=== PATIENT | female | born 1985 | race Caucasian/White ===

== ENCOUNTER 2024-04-05 18:25 | Emergency (ER) | payer BC, SELFPAY ==
[2024-04-05 18:28] VITALS: BP 125/80
[2024-04-05 18:37] VITALS: BMI 25.9
[2024-04-05] MEDS: MOTRIN 600 MG PO (19:17)
--- NOTE | 2024-04-05 20:19 | ED.SKININJ ---
HPI-Injury
General
Chief Complaint: Skin Problem
Source: patient
Exam Limitations: none
Time Seen by Provider: 04/05/24 18:48
Nursing documentation reviewed up to this point in time: agreed with
History of Present Illness-Injury
Is this injury a work related problem?: No
Is pt an associate of [facility]/[place]?: No
Initial Injury comments:
Patient states she was stung by unknown insect that was on her bag. Complains of ppain to right palmar hand. Incident occurred just [employer]
Past History
Past History
ED Past Medical History: Hypercholesterolemia, Valvular disease (Mitral valve prolapse) and Psychiatric (Depression, anxiety)
ED Past Surgical History: None
Social History
Tobacco: Non-smoker
Alcohol: Occasional
Drug: None
Personal:
Living: with family
Employment: Employed
Review of Systems
Review of Systems
Allergies reviewed?: Yes
All Other Systems: ROS reviewed and negative except as documented in HPI and ROS
Constitutional: Reports no symptoms
EENT: Reports no symptoms
Respiratory: Reports no symptoms
Musculoskeletal: Reports no symptoms
Skin: Reports other (insect sting to rigth palmar hand)
Neurological: Reports no symptoms
Psychiatric: Reports no symptoms
Phy Exam
General Physical Exam
General Presentation: well appearing and no apparent distress
General age: appears stated age
General Skin: warm and dry
General Habitus: normal
General Mental: alert
General Hydration: appears well hydrated
Musculoskeletal Exam
Musculoskeletal Exam: full ROM and neuro vasc intact
Skin Exam
Skin Exam: other (insect sting to right palmar hand)
Psychiatric Exam
Psychiatric Exam: normal mood/affect
Course
Orders/Labs/Results
Orders:
Orders
04/05/24 18:54
Lidocaine/Epinephrine/Tetracai [Let Topical Anesthetic Gel] 3 ml .ROUTE .STK-MED ONE
04/05/24 19:14
Ibuprofen [Motrin] 600 mg .ROUTE .STK-MED ONE
04/05/24 19:17
Ibuprofen [Motrin] 600 mg PO NOW STA
Vital Signs
Initial and Last Documented VS:
Initial Vital Signs
Temp Pulse Resp BP Pulse Ox
98.8 F 87 20 125/80 97
04/05/24 18:28 04/05/24 18:28 04/05/24 18:28 04/05/24 18:28 04/05/24 18:28
Last Documented Vital Signs
Temp Pulse Resp BP Pulse Ox
98.8 F 87 20 125/80 97
04/05/24 18:28 04/05/24 18:28 04/05/24 18:28 04/05/24 18:28 04/05/24 18:28
*Critical Care Note
Total Time (30-74mins, 75-104mins- exclusive of procedures): Not Applicable
ED Attending Note
-
Portions of this chart may have been created with voice recognition software.� Occasional wrong word or��sound alike� substitutions may have occurred due to the inherent limitations of voice recognition software.
Discharge Plan
Departure
Patient Disposition: Home (Routine Discharge)
Date of Disposition: 04/05/24
Time of Disposition: 19:02
Patient with high blood pressure during this ER visit?: No
Condition: Good
Discharge Problem:
Insect bite
Instructions: Using Cold for Pain, Insect Bites and Stings ED
Prescriptions:
New
methylprednisolone [Medrol (Armando)] 4 mg tablets,dose pack
See Rx Instructions .ROUTE .COMPLEX Qty: 21 0RF
Rx Instructions:
for 6 days
No Action
ferrous sulfate [FeroSul] 325 MG tablet
325 mg PO BID Qty: 60 0RF
ibuprofen 600 MG tablet
600 mg PO Q6HPRN PRN (Reason: MODERATE PAIN/CRAMPS) Qty: 60 1RF
Colace 100 Mg
1 tab PO DAILY PRN (Reason: constipation) Qty: 30 1RF
vit-iron carbonyl-FA 1 TAB tablet
1 tab PO DAILY
diclofenac sodium 25 MG tablet,delayed release (DR/EC)
50 mg PO BID PRN (Reason: pain) Qty: 30 0RF
cyclobenzaprine 10 MG tablet
10 mg PO TIDPRN PRN (Reason: spasm) Qty: 12 0RF
Activity Restrictions/Additional Instructions:
May use benadryl 25mg every 4-6 hours for itching. Return to the emergency department immediately for any difficulty breathing or swallowing.
Interventions
Interventions:
*Risk Screen - Suicide Last Done: 04/05/24 18:37
*General Assessment Last Done: 04/05/24 18:37
*Neglect/Abuse Screening Last Done: 04/05/24 18:37
ED- Fall Risk Assessment Last Done: 04/05/24 18:37
*ED COVID-19 Vaccine History Last Done: 04/05/24 18:37
*Nursing Disposition Last Done: 04/05/24 20:08
ED-Skin Assessment Last Done: 04/05/24 18:37
Discharge Date and Time
Discharge Date/Time: 04/05/24 20:00
Print Language: CZECH
== END 2024-04-05 20:00 | disposition home or self-care (01) ==
LOC: EMR 18:25
PROVIDERS: EMERGENCY PHYSICIAN Emergency Medicine; FAMILY PHYSICIAN Family Medicine
DX: S60.561A Insect bite (nonvenomous) of right hand, initial encounter (principal); W57.XXXA Bitten or stung by nonvenomous insect and other nonvenomous arthropods, initial encounter; E78.00 Pure hypercholesterolemia, unspecified; I38 Endocarditis, valve unspecified; I34.1 Nonrheumatic mitral (valve) prolapse; F41.8 Other specified anxiety disorders
CPT/HCPCS: 99282

== ENCOUNTER → 2024-11-04 11:41 | Outpatient (REF) | payer BC, SELFPAY | LOC: PNTC 11:41 | PROVIDERS: ATTENDING PHYSICIAN Obstetrics & Gynecology | DX: O09.523 Supervision of elderly multigravida, third trimester (principal) | CPT/HCPCS: 36415; 86850; 86900; 86901; 96372; J2790 ==

== ENCOUNTER → 2024-11-07 11:04 | Outpatient (REF) | payer BC, SELFPAY ==
--- NOTE | 2024-11-07 11:12 | PN.DIAED06 ---
Meal Plan - Gestational
- Breakfast
Gestational Diabetes Meal Plan Name: 1800 calories
Breakfast - Total Carbohydrate (grams): 30
Breakfast - Starch Carbohydrate: 1
Breakfast - Fruit Carbohydrate: 0
Breakfast - Milk Carbohydrate: 1
Breakfast - Nonstarchy Vegetables: Yes
Breakfast - Meat/Protein: 1
Breakfast - Fat: 2
- Morning Snack
Morning Snack - Total Carbohydrate (grams): 30
Morning Snack - Starch Carbohydrate: 1
Morning Snack - Fruit Carbohydrate: 0
Morning Snack - Milk Carbohydrate: 1
Morning Snack - Nonstarchy Vegetables: Yes
Morning Snack - Meat/Protein: 0.5
Morning Snack - Fat: 0
- Lunch
Lunch - Total Carbohydrate (grams): 45
Lunch - Starch Carbohydrate: 2
Lunch - Fruit Carbohydrate: 1
Lunch - Milk Carbohydrate: 0
Lunch - Nonstarchy Vegetables: Yes
Lunch - Meat/Protein: 2
Lunch - Fat: 1
- Afternoon Snack
Afternoon Snack - Total Carbohydrate (grams): 30
Afternoon Snack - Starch Carbohydrate: 1
Afternoon Snack - Fruit Carbohydrate: 1
Afternoon Snack - Milk Carbohydrate: 0
Afternoon Snack - Nonstarchy Vegetables: Yes
Afternoon Snack - Meat/Protein: 1
Afternoon Snack - Fat: 0
- Dinner
Dinner - Total Carbohydrate (grams): 45
Dinner - Starch Carbohydrate: 2
Dinner - Fruit Carbohydrate: 0
Dinner - Milk Carbohydrate: 1
Dinner - Nonstarchy Vegetables: Yes
Dinner - Meat/Protein: 2
Dinner - Fat: 2
- Evening Snack
Evening Snack - Total Carbohydrate (grams): 30
Evening Snack - Starch Carbohydrate: 1
Evening Snack - Fruit Carbohydrate: 0
Evening Snack - Milk Carbohydrate: 1
Evening Snack - Nonstarchy Vegetables: Yes
Evening Snack - Meat/Protein: 1
Evening Snack - Fat: 1
--- NOTE | 2024-11-07 12:36 | PN.DE ---
Diabetes Education
- -
Jasmin presented with her mother in law for medical nutrition therapy. She is currently 31 weeks gestation with her 2nd child. She denied having gestational diabetes with her first child 8 years ago. Andrea' mother had type 2 diabetes,
diagnosed at 30 years of age.
I explained glucose metabolism and what occurs during to cause an increase in blood sugar. I discussed the importance of keeping the blood sugar well controlled to avoid complications to the baby during and after . I also explained
that she is at an increased risk of developing T2DM in the future. Jasmin had checked her blood sugar in the past while caring for her mother. I reviewed the set up and use of the hulur Next EZ glucometer. She was able to return demonstrate a
fingerstick and her glucose level was 99 mg/dL (appx 1.5 hours post breakfast). I reviewed target glucose ranges for fasting and 2 hour post meal. I also provided written material highlighting the fasting target of <95 mg/dL and <120 mg /dl 2 hours
post prandial. Jasmin was given a glucose log and she verbalized understanding of sending her readings weekly to [facility].
I reviewed macronutrients with Jasmin and provided her with a 1800 calorie gestational meal plan. I reviewed the meal plan in detail and gave her specific samples of appropriate meal/snack options. She stated she will keep a food log and will
evaluate her meal options by monitoring her 2 hour post meal blood sugar level.
Currently Jasmin is not doing any physical activity. I discussed the benefit of exercise in decreasing blood glucose levels. She stated she would add in 30 to 60 minutes of walking daily. I encouraged Jasmin to reach out to the office with any
questions or if she is prescribed insulin.
== END ==
LOC: DES 11:04
PROVIDERS: ATTENDING PHYSICIAN Student in an Organized Health Care Education/Training Program
DX: O24.419 Gestational diabetes mellitus in pregnancy, unspecified control (principal)
CPT/HCPCS: 99078

== ENCOUNTER → 2024-11-20 11:28 | Outpatient (REF) | payer BC, SELFPAY | LOC: PNTC 11:28 | PROVIDERS: ATTENDING PHYSICIAN Obstetrics & Gynecology | DX: O24.419 Gestational diabetes mellitus in pregnancy, unspecified control (principal) | CPT/HCPCS: 59025; 76815 ==

== ENCOUNTER 2024-11-22 18:45 | Emergency (ER) | payer BC, SELFPAY ==
[2024-11-22 18:51] VITALS: BP 118/67
--- NOTE | 2024-11-22 21:18 | ED.GENMED ---
History of Present Illness
General
Chief Complaint: Back Pain
Source: patient
Exam Limitations: none
Time Seen by Provider: 11/22/24 21:08
History of Present Illness
History of Present Illness:
39yo female currently 32 weeks presenting with her for evaluation of lower back pain. Symptoms have been constant for the past 4 days. She denies any trauma or inciting incident. Pain is located in her left lower back and
radiates to the left buttock region. She feels her symptoms are from sciatica. Pain is worse with movement and ambulation. She has tried stretching, heat, and Tylenol without any relief. She states she is at her wits end and was not sure what to
do so came to the ED. Patient is otherwise asymptomatic and denies any abdominal pain, difficulty urinating, vaginal bleeding, leakage of fluid, paresthesias, fevers. movement has been normal. She had a nonstress test 2 days ago as well as
an ultrasound earlier in the week which were both normal. Her only complication this is gestational diabetes which is diet-controlled. She follows with [facility].
Past History
Past History
ED Past Medical History: Hypercholesterolemia, Valvular disease (Mitral valve prolapse) and Psychiatric (Depression, anxiety)
ED Past Surgical History: None
Social History
Tobacco: Non-smoker
Alcohol: Occasional
Drug: None
Personal:
Living: with family
Employment: Employed
Phy Exam
General Physical Exam
General Presentation: well appearing and no apparent distress
General age: appears stated age
General Skin: warm and dry
General Habitus: normal
General Mental: alert
ENT Exam
ENT Exam: normocephalic
Pulmonary Exam
Pulmonary Exam: no respiratory distress
Gastrointestinal Exam
Gastrointestinal Exam: soft, non distended and other (Gravid abdomen. No abdominal tenderness. FHR 150.)
Neurological Exam
Neurological Exam: alert
Danna Coma Scale
Eye Opening: Spontaneous
Verbal Response: Oriented
Motor Response: Obeys Commands
GCS Total Score: 15
Musculoskeletal Exam
Musculoskeletal Exam: other (No tenderness to palpation of the lumbar region. Pain is elicited with trunk movement. No skin changes.)
Skin Exam
Skin Exam: normal color and warm/dry
Psychiatric Exam
Psychiatric Exam: normal mood/affect
Course
Orders/Labs/Results
Orders:
Orders
11/22/24 21:30
Heart Tones ONCE
Vital Signs
Initial and Last Documented VS:
Initial Vital Signs
Temp Pulse Resp BP Pulse Ox
98.2 F 84 16 118/67 99
11/22/24 18:51 11/22/24 18:51 11/22/24 18:51 11/22/24 18:51 11/22/24 18:51
Last Documented Vital Signs
Temp Pulse Resp BP Pulse Ox
98.2 F 84 16 118/67 99
11/22/24 18:51 11/22/24 18:51 11/22/24 18:51 11/22/24 18:51 11/22/24 18:51
MDM/Problems Addressed
Differential Diagnosis Includes:
39yoF here with L lower back/buttock pain x 4 days. No trauma. Currently 32 weeks . No abdominal pain, LOF, vaginal bleeding, contractions, or other concerns. VSS. Patient is well-appearing in no acute distress. No abdominal
tenderness appreciated. There is pain elicited in the low back with trauma movement. No tenderness to palpation. Differential diagnosis includes but is not limited to: Sciatica, lumbar strain, no clinical evidence of labor
Discussed case with LO[facility] TALLIER on-call, Dr. Felix, who recommends rest, hydration, and PT as an outpatient. Patient may also try a maternity belt. Recommendations discussed with patient. She was advised to follow-up closely with her [facility] team.
ED return precautions discussed. Patient discharged in stable condition.
*Critical Care Note
Total Time (30-74mins, 75-104mins- exclusive of procedures): Not Applicable
ED Attending Note
-
Portions of this chart may have been created with voice recognition software.� Occasional wrong word or��sound alike� substitutions may have occurred due to the inherent limitations of voice recognition software.
Discharge Plan
Departure
Patient Disposition: Home (Routine Discharge)
Date of Disposition: 11/22/24
Time of Disposition: 21:58
Patient with high blood pressure during this ER visit?: No
Discharge Problem:
Left sided sciatica
Instructions: Sciatica (DC)
Prescriptions:
No Action
ferrous sulfate [FeroSul] 325 MG tablet
325 mg PO BID Qty: 60 0RF
ibuprofen 600 MG tablet
600 mg PO Q6HPRN PRN (Reason: MODERATE PAIN/CRAMPS) Qty: 60 1RF
Colace 100 Mg
1 tab PO DAILY PRN (Reason: constipation) Qty: 30 1RF
vit-iron carbonyl-FA 1 TAB tablet
1 tab PO DAILY
diclofenac sodium 25 MG tablet,delayed release (DR/EC)
50 mg PO BID PRN (Reason: pain) Qty: 30 0RF
cyclobenzaprine 10 MG tablet
10 mg PO TIDPRN PRN (Reason: spasm) Qty: 12 0RF
methylprednisolone [Medrol (Armando)] 4 mg tablets,dose pack
See Rx Instructions .ROUTE .COMPLEX Qty: 21 0RF
Rx Instructions:
for 6 days
Referrals:
Dainel Olivier MD [Family Provider] -
Activity Restrictions/Additional Instructions:
Rest, hydrate, and apply heat. Continue taking Tylenol as needed. Maternity belt may help with pressure from uterus.
Please follow-up with your OBGYN on Sunday for further care. You may need outpatient physical therapy if symptoms do not improve.
Interventions
Interventions:
*Risk Screen - Suicide Last Done: 11/22/24 22:20
*General Assessment Last Done: 11/22/24 18:51
*Neglect/Abuse Screening Last Done: 11/22/24 18:51
*ED- Fall Risk Assessment Last Done: 11/22/24 22:20
*ED COVID-19 Vaccine History Last Done: 11/22/24 18:51
*Nursing Disposition Last Done: 11/22/24 22:20
ED-Musculoskeletal Assessment Last Done: 11/22/24 21:00
Discharge Date and Time
Discharge Date/Time: 11/22/24 22:22
Print Language: GEORGIAN
== END 2024-11-22 22:22 | disposition home or self-care (01) ==
LOC: EMR 18:45
PROVIDERS: EMERGENCY PHYSICIAN Emergency Medicine; FAMILY PHYSICIAN Family Medicine
DX: O99.891 Other specified diseases and conditions complicating pregnancy (principal); M54.42 Lumbago with sciatica, left side; O09.523 Supervision of elderly multigravida, third trimester; O99.283 Endocrine, nutritional and metabolic diseases complicating pregnancy, third trimester; E78.00 Pure hypercholesterolemia, unspecified; Z3A.32 32 weeks gestation of pregnancy
CPT/HCPCS: 99282

== ENCOUNTER → 2024-11-27 16:58 | Outpatient (REF) | payer BC, SELFPAY | LOC: PNTC 16:58 | PROVIDERS: ATTENDING PHYSICIAN Student in an Organized Health Care Education/Training Program | DX: O24.419 Gestational diabetes mellitus in pregnancy, unspecified control (principal) | CPT/HCPCS: 59025 ==

== ENCOUNTER → 2024-12-04 08:52 | Outpatient (REF) | payer BC, SELFPAY | LOC: PNTC 08:52 | PROVIDERS: ATTENDING PHYSICIAN Student in an Organized Health Care Education/Training Program | DX: O24.419 Gestational diabetes mellitus in pregnancy, unspecified control (principal) | CPT/HCPCS: 59025; 76815 ==

== ENCOUNTER → 2024-12-11 17:03 | Outpatient (REF) | payer BC, SELFPAY | LOC: PNTC 17:03 | PROVIDERS: ATTENDING PHYSICIAN Student in an Organized Health Care Education/Training Program | DX: O24.419 Gestational diabetes mellitus in pregnancy, unspecified control (principal); O09.529 Supervision of elderly multigravida, unspecified trimester | CPT/HCPCS: 76818 ==

== ENCOUNTER 2024-12-13 16:55 | Observation (INO) | payer BC, SELFPAY ==
[2024-12-13 17:00] VITALS: BP 110/70; BMI 33.2
== END 2024-12-13 18:08 | disposition home or self-care (01) ==
LOC: LDRP 16:55
PROVIDERS: ADMITTING PHYSICIAN Student in an Organized Health Care Education/Training Program
DX: O47.03 False labor before 37 completed weeks of gestation, third trimester (principal); O24.410 Gestational diabetes mellitus in pregnancy, diet controlled; Z3A.35 35 weeks gestation of pregnancy; O09.523 Supervision of elderly multigravida, third trimester; O99.343 Other mental disorders complicating pregnancy, third trimester; F41.9 Anxiety disorder, unspecified; Z79.82 Long term (current) use of aspirin
CPT/HCPCS: 59899; G0378

== ENCOUNTER → 2024-12-18 16:44 | Outpatient (REF) | payer BC, SELFPAY | LOC: PNTC 16:44 | PROVIDERS: ATTENDING PHYSICIAN Student in an Organized Health Care Education/Training Program | DX: O24.410 Gestational diabetes mellitus in pregnancy, diet controlled (principal); O09.513 Supervision of elderly primigravida, third trimester; O99.213 Obesity complicating pregnancy, third trimester | CPT/HCPCS: 59025 ==

== ENCOUNTER → 2024-12-25 11:24 | Outpatient (REF) | payer BC, SELFPAY | LOC: PNTC 11:24 | PROVIDERS: ATTENDING PHYSICIAN Obstetrics & Gynecology | DX: O24.410 Gestational diabetes mellitus in pregnancy, diet controlled (principal); O09.523 Supervision of elderly multigravida, third trimester; O99.213 Obesity complicating pregnancy, third trimester | CPT/HCPCS: 59025; 76815 ==

== ENCOUNTER 2024-12-30 05:56 | Inpatient (IN) | payer BC, SELFPAY ==
[2024-12-30 06:14] LABS: Glucose - Point of Care 90 mg/dl (70-99)
[2024-12-30 06:18] VITALS: BP 115/81; BMI 34.0
[2024-12-30 06:51] LABS: % Basophils 0.5 % (0-2); % Eosinophils 0.8 % (0-6); % Immature Granulocytes 0.5 % (0-0.5); % Lymphocytes 25.4 % (20.5-51.1); % Monocytes 7.4 % (1.7-9.3); % Neutrophils 65.4 % (42.2-75.2); Absolute Eosinophils 0.1 10^3/uL (0-0.7); Absolute Monocytes 0.6 10^3/uL (0.1-0.6); Absolute Neutrophils 5.1 10^3/uL (1.4-6.5); Hematocrit 37.6 % (37.0-47.0); Mean Corp Hgb Conc. 34.6 g/dL (33.0-37.0); Mean Corpuscular Hgb 30.3 pg (27.0-31.0); Mean Corpuscular Volume 87.6 fL (81.0-99.0); Mean Platelet Volume 11.2 fL (7.4-10.4); Nucleated Red Blood Cells % 0 %; Platelet Count 163 10^3/uL (130-400); Red Blood Cell Count 4.29 10^6/uL (4.20-5.40); Red Cell Dist. Width 14.4 % (11.5-14.5); White Blood Cell Count 7.7 10^3/uL (4.8-10.8)
[2024-12-30 06:54] LABS: INR 0.96; PT 13.1 Sec (11.4-14.6)
[2024-12-30 06:55] LABS: Fibrinogen 514 MG/DL (199-459)
[2024-12-30 06:56] LABS: ALT (SGPT) 16 U/L (0-35); AST (SGOT) 20 U/L (14-36); Albumin 3.9 g/dl (3.5-5.0); Alkaline Phosphatase 194 U/L (38-126); Blood Urea Nitrogen 8 mg/dl (7-17); Calcium 9.8 mg/dl (8.4-10.2); Carbon Dioxide 20 mmol/L (22-30); Chloride 106 mmol/L (98-107); Estimated Creatinine Clearance 111 ml/min; Glucose 89 mg/dl (70-99); Potassium 4.3 mmol/L (3.5-5.1); Sodium 137 mmol/L (135-145); Total Bilirubin 0.5 mg/dl (0.2-1.3); Total Protein 6.4 g/dl (6.3-8.2); eGFR > 60.00
[2024-12-30 08:50] LABS: Glucose - Point of Care 76 mg/dl (70-99)
[2024-12-30] MEDS: SUBLIMAZE 100 MCG EPIDURAL (09:34)
[2024-12-30] MEDS: FENTANYL/BUPIVACAINE 100 EPIDURAL (09:35)
[2024-12-30 11:02] LABS: Glucose - Point of Care 82 mg/dl (70-99)
[2024-12-30] MEDS: BICITRA 30 ML PO (13:25)
[2024-12-30] MEDS: TYLENOL 1000 MG PO (13:25)
[2024-12-30] MEDS: ZITHROMAX INFUSION 250 IV (13:29)
[2024-12-30] MEDS: ANCEF 10 IV (13:30)
--- NOTE | 2024-12-30 19:13 | OR.RPT ---
Operative Report
Operative Report
Date of procedure: 12/30/2024
Preop diagnosis: IUP @37.6, non-reassuring heart tones, GDMA1
Postop diagnosis: same, intrapartum hemorrhage
Procedure: Primary low transverse section
Surgeon: Karla
Anesthesia: epidural, Efra
QBL: 1161mL
Findings: Viable male born at 1353, Apgars 3/7/10. head wedged in pelvis. Very edematous lower uterine segment. Endometrium at site of hysterotomy also appeared very edematous. Hysterotomy raw appearing and edematous at the end of the
procedure- surgiflow and surgicel placed. Normal appearing bilateral fallopian tubes and ovaries. Urine blood tinged after delivery of the head, bladder appeared intact and urine was more clear by the end of the procedure. Placenta intact and
calcified-sent to pathology. Labia and perineum very swollen. Fundus firm and bleeding well controlled at the conclusion of the section
Complications: none
Indication: Patient is a 39yo @37.6 who presented to Labor and Delivery with complaints of vaginal bleeding. On exam, she was found to have runny, thin bloody discharge in the vaginal vault. She was 3-4cm dilated. Abruption labs were negative
and ultrasound was negative for abruption. Patient was expectantly managed. She continued to leak bloody clear fluid. She ultimately progressed to 10cm. During pushing there was difficulty tracing FHTs and there were possible late decelerations.
Once the FSE was placed, FHTs were in the 90s for 3 minutes that resolved with repositioning. FHTs were then in the 170s with minimal variability and late and variable decelerations after pushing. She was making minimal descent with each push and
the head was still -1 to -2 station. Recommendation was made to proceed with primary section. Risks, benefits and alternatives discussed including bleeding, infection, damage to surrounding structures and need for future operations.
Consents signed. Anesthesia notified. Ancef 2g and azithromycin 500mg IV ordered for antibiotic prophylaxis.
Procedure: Patient was taken to the operating room where epidural was bolused and found to be adequate. 2g of Ancef and 500mg azithromycin were given for antibiotic prophylaxis. The abdomen was prepped with ChloraPrep. The patient was draped in the
normal sterile fashion. She was placed in the dorsal supine position with a left lateral tilt. A Pfannenstiel incision was made with a 10 blade and carried down to the fascia with a scalpel. Hemostasis achieved with Bovie. The fascia was incised and
dissected laterally with Harvey scissors. The superior aspect of the fascia was grasped with Katya clamps. The underlying rectus fascia was sharply dissected with Harvey scissors. In a similar fashion the inferior aspect of the fascia was elevated with
Katya clamps and the rectus muscle was dissected off with Harvey scissors. The rectus muscles were down the midline to the level of the pubic symphysis with manual dissection. The peritoneum was bluntly entered and extended using manual
traction.
Garcia retractor and bladder blade were placed revealing good visualization of the bladder. The vesicouterine peritoneum was identified. A thin lower uterine segment was noted. The lower uterine segment was incised with a scalpel. Umbilical cord
noted at entry into uterine cavity. The uterine incision was extended bluntly with lateral and upward traction.
The fetus was in cephalic presentation. The head was wedged in the pelvis. The head was elevated out of the pelvis with special attention paid to avoid using the uterine incision as a fulcrum. Gentle fundal pressure was applied one the head
was brought to the incision. The head delivered through the hysterotomy and the rest of the infant delivered without difficulty. Delayed cord clamping was performed. The was handed off to the cashiers buss[employer] runners. IV oxytocin was started to
facilitate uterine contractions. The placenta was manually extracted. The uterus was exteriorized. The lower uterine segment and endometrium were very edematous. Allis clamps were placed at the apices of the hysterotomy. The inside of the uterus was
wiped with a lap sponge to assure complete removal of placental membranes. Fundal massage was performed and uterus was firm. The uterine incision was closed with 0 Vicryl in a running locked fashion. A horizontal imbricating stitch was done on the
hysterotomy with 0 Vicryl. There was bleeding inferior to the hysterotomy on the left side which was controlled with figure of eights with 2-0 Vicryl. The hysterotomy was inspected and noted to be hemostatic. The uterus was placed back in the
abdomen. Blood clots and fluid were wiped out of the abdomen and pelvis with moist laparotomy sponges. The hysterotomy was examined again and there was oozing from the right corner of the hysterotomy. Figure of eight was placed with 2-0 Vicryl to
achieve hemostasis. There was still oozing inferior to the hysterotomy on the left side. A running locked stitch with 2-0 Vicryl was placed to achieve hemostasis. The tissue surrounding the hysterotomy was raw and edematous. Bovie cautery was used
on oozing areas on the serosa to achieve hemostasis. Surgiflo and Surgicel were placed over the hysterotomy. The hysterotomy was inspected again and was hemostatic.
The rectus muscles were inspected and were hemostatic. The fascial layer was closed in a running continuous fashion using 0 Vicryl. The subcutaneous tissue was copiously irrigated and any small bleeding vessels were cauterized with Bovie cautery.
The subcutaneous tissue was reapproximated in a running continuous fashion with 2-0 Plain. The skin was closed with 4-0 Vicryl in a subcuticular fashion and covered with skin glue. The patient tolerated the procedure well. All sponge and instrument
counts were correct times two. The patient was taken to the recovery room in stable condition. The Dupont had blood tinged urine in the bag at the end of the procedure, but the tube has yellow concentrated urine. The bladder was inspected and was
intact.
[2024-12-30] MEDS: TYLENOL 650 MG PO (19:24)
[2024-12-30] MEDS: BENADRYL 25 MG IV (20:08)
[2024-12-30] MEDS: TORADOL 15 MG IV (20:42)
[2024-12-31] MEDS: TORADOL 15 MG IV ×3 (02:58→15:13)
[2024-12-31] MEDS: TYLENOL 650 MG PO ×2 (04:49→21:08)
[2024-12-31 05:29] LABS: Hematocrit 24.9 % (37.0-47.0); Hemoglobin 8.2 g/dL (12.0-16.0); Mean Corp Hgb Conc. 32.9 g/dL (33.0-37.0); Mean Corpuscular Hgb 30.3 pg (27.0-31.0); Mean Corpuscular Volume 91.9 fL (81.0-99.0); Mean Platelet Volume 11.9 fL (7.4-10.4); Platelet Count 144 10^3/uL (130-400); Red Blood Cell Count 2.71 10^6/uL (4.20-5.40); Red Cell Dist. Width 14.6 % (11.5-14.5); White Blood Cell Count 13.4 10^3/uL (4.8-10.8)
[2024-12-31] MEDS: FERRLECIT 110 MG IV (07:50)
[2024-12-31] MEDS: PRENATAL PLUS 1 TABLET PO (08:02)
[2024-12-31] MEDS: ZOLOFT 150 MG PO (08:02)
[2024-12-31] MEDS: RHOGAM 300 MCG IM (10:01)
--- NOTE | 2024-12-31 19:03 | W.PN.ANS.POP ---
Anesthesia Post Operative
- Anesthesia Post Op Note
Vital Signs Stable-See Nursing Note: Yes
Airway Patent: Yes
Adequate Pain Control: Yes
Change in Mental Status: No
Current Postoperative Nausea & Vomiting: No
Anesthesia Complications: No
General Anesthetic Recall: No
Unplanned Admission: No
Post Op Hydration Adequate: Yes
[2024-12-31] MEDS: MOTRIN 600 MG PO (21:08)
[2025-01-01] MEDS: TYLENOL 650 MG PO ×4 (03:08→22:01)
[2025-01-01] MEDS: MOTRIN 600 MG PO ×3 (03:08→22:00)
[2025-01-01] MEDS: SENOKOT-S 1 TABLET PO (07:32)
[2025-01-01] MEDS: MYLICON 80 MG PO (07:32)
[2025-01-01] MEDS: PRENATAL PLUS 1 TABLET PO (07:32)
[2025-01-01] MEDS: ZOLOFT 150 MG PO (07:33)
[2025-01-02] MEDS: TYLENOL 650 MG PO (08:54)
[2025-01-02] MEDS: MOTRIN 600 MG PO (08:55)
[2025-01-02] MEDS: FEOSOL 325 MG PO (08:55)
[2025-01-02] MEDS: ZOLOFT 150 MG PO (08:55)
[2025-01-02] MEDS: PRENATAL PLUS 1 TABLET PO (08:58)
[2025-01-02 11:38] LABS: Syphilis/T. pallidum Ab Reflex Negative (Negative)
== END 2025-01-02 19:02 | disposition home or self-care (01) | DRG 788 ==
LOC: LDRP 05:56
PROVIDERS: Student in an Organized Health Care Education/Training Program; ADMITTING PHYSICIAN Obstetrics & Gynecology
PROC: 10D00Z1 Extraction of Products of Conception, Low, Open Approach (ICD-10-PCS; 2024-12-30)
PROC: 3E0334Z Introduction of Serum, Toxoid and Vaccine into Peripheral Vein, Percutaneous Approach (ICD-10-PCS; 2024-12-31)
DX: O67.8 Other intrapartum hemorrhage (principal); O24.420 Gestational diabetes mellitus in childbirth, diet controlled; O99.344 Other mental disorders complicating childbirth; F41.9 Anxiety disorder, unspecified; O76 Abnormality in fetal heart rate and rhythm complicating labor and delivery; Z3A.37 37 weeks gestation of pregnancy; Z37.0 Single live birth; O26.893 Other specified pregnancy related conditions, third trimester; Z67.41 Type O blood, Rh negative
CPT/HCPCS: 88307; 76815; 80053; 82962; 85025; 85027; 85384; 85460; 85461; 85610; 86780; 86850; 86900; 86901; J2790; J2916